=== PATIENT | female | born 1945 | race Caucasian/White ===

== ENCOUNTER 2017-02-13 12:40 | Day surgery (SDC) | payer OTHER, MEDICARE ==
[2017-02-13 12:20] VITALS: BMI 34.2
[2017-02-13] MEDS ORDERED: PROPOFOL 20 ML ONE ×3 (13:55)
[2017-02-13 14:56] VITALS: TEMP 98.1
[2017-02-13 15:37] VITALS: BP 135/78; PULSE 58
--- NOTE | 2017-02-15 15:55 | PATH ---
Surgical Pathology Report Patient Name: RIAZ NICHOLS [facility] Rec. #: [id number] /Age/Gender: 1945 (Age: 71) / F Account: [id number] Location: [facility]-ENDOSCOPY Taken: 02/13/2017 Received: 02/14/2017 Reported: 02/15/2017 Physicians: Shar Diaz M.D. Specimen(s) Received A: BX GE JUNCTION B: BX LEFT COLON POLYP C: BX RIGHT COLON POLYP D: BX RIGHT COLON POLYP E: BX SIGMOID COLON POLYP Clinical History Family history of cancer, colon polyps Hiatal hernia, diverticulosis, colon polyp, hemorrhoids Final Diagnosis A. GE JUNCTION, BIOPSY: SQUAMOUS EPITHELIUM WITH CHRONIC INFLAMMATION AND REFLUX TYPE CHANGES. NO COLUMNAR EPITHELIUM PRESENT (NO INTESTINAL METAPLASIA/SURESH'S ESOPHAGUS IDENTIFIED). B. COLON, LEFT, POLYP, BIOPSY: TUBULAR ADENOMA. C. COLON, RIGHT, POLYP #1, BIOPSY: INFLAMMATORY-TYPE POLYP. D. 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 E. COLON, SIGMOID, POLYP, BIOPSY: FRAGMENTS OF HYPERPLASTIC POLYP. Electronically Signed Brian Marinelli M.D. Gross Description A. Received in formalin, labeled "biopsy GE junction" are 2 cooney, irregular portions of soft tissue measuring 0.3 and 0.6 cm in greatest dimension. The specimens are submitted in toto in one cassette. B. Received in formalin, labeled "biopsy left colon polyp" is a cooney, irregular portion of soft tissue measuring 0.2 cm in greatest dimension. The specimen is submitted in toto in one cassette. C. Received in formalin, labeled "biopsy right colon polyp" is a cooney, irregular portion of soft tissue measuring 0.4 cm in greatest dimension. The specimen is submitted in toto in one cassette. D. Received in formalin, labeled "biopsy right colon polyps #2" are 3 cooney, irregular portions of soft tissue averaging 0.1 cm in greatest dimension. The specimens are submitted in toto in one cassette. E. Received in formalin, labeled "biopsy sigmoid colon polyp" are 2 cooney, irregular portions of soft tissue averaging 0.2 cm in greatest dimension. The specimens are submitted in toto in one cassette. 02/14/201702/14/2017
== END 2017-02-13 15:37 | disposition home or self-care (01) ==
LOC: JASU-ENDO 12:40
PROVIDERS: ATTEND Internal Medicine Gastroenterology
PROC: 0DBN8ZX Excision of Sigmoid Colon, Via Natural or Artificial Opening Endoscopic, Diagnostic (ICD-10-PCS; 2017-02-13)
PROC: 0DB58ZX Excision of Esophagus, Via Natural or Artificial Opening Endoscopic, Diagnostic (ICD-10-PCS; 2017-02-13)
PROC: 0DBK8ZX Excision of Ascending Colon, Via Natural or Artificial Opening Endoscopic, Diagnostic (ICD-10-PCS; principal; 2017-02-13 13:30)
DX: Z12.11 Encounter for screening for malignant neoplasm of colon (principal); Z80.0 Family history of malignant neoplasm of digestive organs; Z86.010 Personal history of colon polyps; K57.30 Diverticulosis of large intestine without perforation or abscess without bleeding; K64.8 Other hemorrhoids; D12.2 Benign neoplasm of ascending colon; D12.5 Benign neoplasm of sigmoid colon; K20.9 Esophagitis, unspecified
CPT/HCPCS: 88305-TC